=== PATIENT | male | born 1955 | race Two or more races ===

== ENCOUNTER 2024-05-19 20:52 | Inpatient (IN) | payer OTHER, SELFPAY ==
[2024-05-19 14:08] VITALS: BP 135/77
--- NOTE | 2024-05-19 14:19 | ED.GENMED ---
ED Provider Triage
<Jose Alberto Johnson PA-C - Last Filed: 05/19/24 20:57>
-
69 year old male with constant abdominal pain, vomiting and loose stools. Now with distention and ongoing pain in abdomen. He is distended and tedner on exam. Labs and CT ordered with IV/oral contrast. Sent to protocol for IV placement.
History of Present Illness
<Jose Alberto Johnson PA-C - Last Filed: 05/19/24 20:57>
General
Chief Complaint: Abdominal Symptoms
Time Seen by Provider: 05/19/24 16:25
<Tristen Pryor DO - Last Filed: 05/19/24 19:29>
General
Source: patient and family (daughter)
History of Present Illness
History of Present Illness:
69-year-old male brought to the emergency room for evaluation of abdominal pain, diarrhea. Patient began feeling unwell about 5 days ago. Started with more significant abdominal pain and also some nausea and vomiting. He has not vomited since the
first 24 hours but has had several episodes of watery stool. He denies any blood or mucus in the stool. He denies any recent travel. No else is ill. Close the patient did receive a COVID booster several days ago but denies any other change in
medications or events. No history of abdominal surgery.
Phy Exam
<Tristen Pryor DO - Last Filed: 05/19/24 19:29>
Physical Exam
Physical Exam:
General: Awake, Alert, Oriented X3. No acute distress.
Vitals: unremarkable
Head: Atraumatic
Eyes: Pupils equal, EOMI
Throat: Airway intact, no exudates, dry mucosa
Neck: Trachea midline
Lungs: Clear and equal b/l
Heart: Regular rate, no murmurs
Abd: Soft, diffusely tender, no rebound, No pulsatile mass
Neuro: Grossly nonfocal
Skin: Warm, dry, no rash
Extremities: pulses equal b/l, no edema
Course
<Jose Alberto Johnson PA-C - Last Filed: 05/19/24 20:57>
Orders/Labs/Results
Orders:
Orders
05/19/24 14:16
Iohexol [Omnipaque] See Protocol PO NOW STA
05/19/24 14:18
CT Abd/pel W Iv And Oral Contr Urgent
Comment:
Reason For Exam: abdominal pain, distention
05/19/24 14:27
Amylase Urgent
Comment: ADD ON
Complete Blood Count/With Diff Urgent
Comprehensive Metabolic Panel Urgent
Lipase Urgent
05/19/24 Dinner
Full Liquids
05/19/24 16:36
0.9% Sodium Chloride 1000 ml [Nss] 1,000 ml IV BOLUS
05/19/24 19:16
Add On- LAB Urgent
Tests Added?: amylase
05/19/24 19:56
COVID-19 Antigen Urgent
Source: Nasal Swab
05/19/24 20:09
Admit/Transfer Patient As Directed
Co-Sign Provider:
Level of Care: Inpatient admission
Assign to:: Medical/Surgical
Physician / Group: salomon mosquera
Diagnosis: abd pain diarrhea , acute pancreatitis
Reason for Hospitalization: abd pain diarrhea , acute pancreatitis
Expected length of stay greater than two midnights?: Yes
ELOS- Estimated Length of Stay in days: 3
I certify the patient meets the requirements for IP care: Yes
Code Status As Directed
Resuscitation Status: Full Code
05/19/24 20:12
PRN Pain Medication Management As Directed
May give lesser potent ordered pain med per pt: Yes
preference::
Protocol:: Medication orders for pain may be administered in a
manner that supports deferring to patient preference
when the pt is:
- Requesting an ordered lesser potent pain medication.
Least to most potent pain medications are defined
as: acetaminophen < NSAID < tramadol < opioids
(morphine, oxycodone, hydromorphone).
- Requesting a lesser dose of the same medication IF
ORDERED.
- Requesting a less intrusive route of administration
if both routes are prescribed by the provider (PO <
IV).
Abnormal Lab Results
05/19/24
14:27
WBC 14.1 H 10^3/uL
(4.8-10.8)
Hct 38.9 L %
(39.0-52.0)
MCV 70.3 L fL
(80.0-94.0)
MCH 23.5 L pg
(27.0-31.0)
Abs Immat Gran (auto) 0.1 H 10^3/uL
(0-0.05)
Absolute Neuts (auto) 10.6 H 10^3/uL
(1.4-6.5)
Absolute Monos (auto) 1.3 H 10^3/uL
(0.1-0.6)
Immature Gran % 1.0 H %
(0-0.5)
Lymphocytes % 12.7 L %
(20.5-51.1)
Monocytes % 9.4 H %
(1.7-9.3)
Sodium 132 L mmol/L
(135-145)
Glucose 167 H mg/dl
(70-99)
AST 94 H U/L
(17-59)
ALT 88 H U/L
(0-50)
Albumin 2.3 L g/dl
(3.5-5.0)
05/19/24 14:27
05/19/24 14:27
Vital Signs
Initial and Last Documented VS:
Initial Vital Signs
Temp Pulse Resp BP Pulse Ox
97.9 F 75 20 135/77 97
05/19/24 14:08 05/19/24 14:08 05/19/24 14:08 05/19/24 14:08 05/19/24 14:08
Last Documented Vital Signs
Temp Pulse Resp BP Pulse Ox
98.1 F 59 18 155/76 96
05/19/24 18:02 05/19/24 18:02 05/19/24 20:05 05/19/24 17:00 05/19/24 18:01
ly;Tristen Pryor, DO - Last Filed: 05/19/24 19:29>
Orders/Labs/Results
Orders:
Orders
05/19/24 14:16
Iohexol [Omnipaque] See Protocol PO NOW STA
05/19/24 14:18
CT Abd/pel W Iv And Oral Contr Urgent
Comment:
Reason For Exam: abdominal pain, distention
05/19/24 14:27
Amylase Urgent
Comment: ADD ON
Complete Blood Count/With Diff Urgent
Comprehensive Metabolic Panel Urgent
Lipase Urgent
05/19/24 Dinner
Full Liquids
05/19/24 16:36
0.9% Sodium Chloride 1000 ml [Nss] 1,000 ml IV BOLUS
05/19/24 19:16
Add On- LAB Urgent
Tests Added?: amylase
05/19/24 19:56
COVID-19 Antigen Urgent
Source: Nasal Swab
05/19/24 20:09
Admit/Transfer Patient As Directed
Co-Sign Provider:
Level of Care: Inpatient admission
Assign to:: Medical/Surgical
Physician / Group: salomon mosquera
Diagnosis: abd pain diarrhea , acute pancreatitis
Reason for Hospitalization: abd pain diarrhea , acute pancreatitis
Expected length of stay greater than two midnights?: Yes
ELOS- Estimated Length of Stay in days: 3
I certify the patient meets the requirements for IP care: Yes
Code Status As Directed
Resuscitation Status: Full Code
05/19/24 20:12
PRN Pain Medication Management As Directed
May give lesser potent ordered pain med per pt: Yes
preference::
Protocol:: Medication orders for pain may be administered in a
manner that supports deferring to patient preference
when the pt is:
- Requesting an ordered lesser potent pain medication.
Least to most potent pain medications are defined
as: acetaminophen < NSAID < tramadol < opioids
(morphine, oxycodone, hydromorphone).
- Requesting a lesser dose of the same medication IF
ORDERED.
- Requesting a less intrusive route of administration
if both routes are prescribed by the provider (PO <
IV).
Abnormal Lab Results
05/19/24
14:27
WBC 14.1 H 10^3/uL
(4.8-10.8)
Hct 38.9 L %
(39.0-52.0)
MCV 70.3 L fL
(80.0-94.0)
MCH 23.5 L pg
(27.0-31.0)
Abs Immat Gran (auto) 0.1 H 10^3/uL
(0-0.05)
Absolute Neuts (auto) 10.6 H 10^3/uL
(1.4-6.5)
Absolute Monos (auto) 1.3 H 10^3/uL
(0.1-0.6)
Immature Gran % 1.0 H %
(0-0.5)
Lymphocytes % 12.7 L %
(20.5-51.1)
Monocytes % 9.4 H %
(1.7-9.3)
Sodium 132 L mmol/L
(135-145)
Glucose 167 H mg/dl
(70-99)
AST 94 H U/L
(17-59)
ALT 88 H U/L
(0-50)
Albumin 2.3 L g/dl
(3.5-5.0)
05/19/24 14:27
05/19/24 14:27
Vital Signs
Initial and Last Documented VS:
Initial Vital Signs
Temp Pulse Resp BP Pulse Ox
97.9 F 75 20 135/77 97
05/19/24 14:08 05/19/24 14:08 05/19/24 14:08 05/19/24 14:08 05/19/24 14:08
Last Documented Vital Signs
Temp Pulse Resp BP Pulse Ox
98.1 F 59 18 155/76 96
05/19/24 18:02 05/19/24 18:02 05/19/24 20:05 05/19/24 17:00 05/19/24 18:01
<Jose Alberto Johnson PA-C - Last Filed: 05/19/24 20:57>
*Critical Care Note
Total Time (30-74mins, 75-104mins- exclusive of procedures): Not Applicable
ED Attending Note
<Jose Alberto Johnson PA-C - Last Filed: 05/19/24 20:57>
-
Portions of this chart may have been created with voice recognition software.� Occasional wrong word or��sound alike� substitutions may have occurred due to the inherent limitations of voice recognition software.
Discharge Plan
Departure
Patient Disposition: Admit
Date of Disposition: 05/19/24
Time of Disposition: 19:29
Presentation/result/management discussed w/ accepting MD/DO: Hospitalist
Condition: Fair
Discharge Problem:
Abdominal pain, acute, Acute pancreatitis
Interventions
Interventions:
*Risk Screen - Suicide Last Done: 05/19/24 14:08
*General Assessment Last Done: 05/19/24 14:08
*Neglect/Abuse Screening Last Done: 05/19/24 14:08
*ED COVID-19 Vaccine History Last Done: 05/19/24 16:32
AP-Gnxcuk-Kegnhljatc Assessment Last Done: 05/19/24 16:30
[2024-05-19] MEDS: OMNIPAQUE 50 ML PO (14:24)
[2024-05-19 14:55] LABS: % Basophils 0.4 % (0-2); % Eosinophils 1.4 % (0-6); % Lymphocytes 12.7 % (20.5-51.1); % Monocytes 9.4 % (1.7-9.3); % Neutrophils 75.1 % (42.2-75.2); Absolute Basophils 0.1 10^3/uL (0-0.2); Absolute Eosinophils 0.2 10^3/uL (0-0.7); Absolute Immature Granulocytes 0.1 10^3/uL (0-0.05); Absolute Lymphocytes 1.8 10^3/uL (1.2-3.4); Absolute Monocytes 1.3 10^3/uL (0.1-0.6); Absolute Neutrophils 10.6 10^3/uL (1.4-6.5); Hematocrit 38.9 % (39.0-52.0); Mean Corp Hgb Conc. 33.4 g/dL (33.0-37.0); Mean Corpuscular Hgb 23.5 pg (27.0-31.0); Mean Corpuscular Volume 70.3 fL (80.0-94.0); Nucleated Red Blood Cells % 0 % (-); Platelet Count 329 10^3/uL (130-400); Red Blood Cell Count 5.53 10^6/uL (4.70-6.10); Red Cell Dist. Width 13.9 % (11.5-14.5); White Blood Cell Count 14.1 10^3/uL (4.8-10.8)
[2024-05-19 15:09] LABS: ALT (SGPT) 88 U/L (0-50); AST (SGOT) 94 U/L (17-59); Albumin 2.3 g/dl (3.5-5.0); Alkaline Phosphatase 121 U/L (38-126); Blood Urea Nitrogen 11 mg/dl (9-20); Carbon Dioxide 25 mmol/L (22-30); Chloride 101 mmol/L (98-107); Glucose 167 mg/dl (70-99); Lipase 225 U/L (23-300); Sodium 132 mmol/L (135-145); Total Bilirubin 0.5 mg/dl (0.2-1.3); Total Protein 6.3 g/dl (6.3-8.2); eGFR > 60.00
[2024-05-19 16:29] VITALS: BMI 25.1
[2024-05-19 16:34] VITALS: BP 155/78
[2024-05-19] MEDS: NSS 1000 IV ×2 (16:37→21:39)
[2024-05-19 17:00] VITALS: BP 155/76
--- NOTE | 2024-05-19 19:42 | HPS.HSE ---
Addendum entered and electronically signed by Juan Daniel Knox DO 05/19/24 21:31:
Patient seen and examined independently. Agree with findings and plan as et forth by LOYD Em.
Patient is a 69y M with PMH significant for DM-II who presents to ED complaining of abdominal discomfort and loose, yellow stools. Patient notes that he received a COVID-19 booster on 05/10. His symptoms started 1-2 days thereafter. He denies
any known sick contacts. He traveled to the from [place] in March and has been well since arrival. Patient denies any fevers / chills. No N/V. No other current complaints / concerns.
Ass:
Loose Stools / Abdominal Discomfort
? Pancreatitis
DM-II
Benign Hypertension
Plan:
Admit for further evaluation and treatment.
Certainly not a classic clinical picture for pancreatitis. Normal lipase.
CT findings noted.
? viral GE. ? med effect / vaccine response.
IVFs overnight. Symptom control.
GI eval in the AM for additional recommendations.
Follow for clinical improvement.
Hold oral DM agents acutely.
Original Note:
Family Physician
-
Family Physician: * NONE
Chief Complaint
-
Nausea, vomiting, yellow stools
History of Present Illness
69-year-old male complaining of abdominal pain with vomiting and loose yellow stools. He reports feeling unwell approximately 5 days ago 5 days ago he vomited the first day then he has had 5 episodes of yellow watery stool that day since then he
has had daily 2 episodes of yellow watery stool. He does report getting a COVID booster on 05/10 due to an upcoming immigration appointment. He denies recent travel,no abx, sick contacts, raw foods, eating out, fever, chills, chest pain,
palpitations, shortness breath, cough, urinary symptoms. He has past medical history of hypertension, hyperlipidemia, DM 2. His daughter states he has been on Plavix 75 mg for 25 years but with no history of stroke or heart attack. He arrived
from [place] on March 14.
Medical History
Past Medical History
Past Medical History: Reports Other
Additional Past Medical History:
hypertension,
hyperlipidemia,
DM 2.
Past Surgical History: Reports None
Social History
Tobacco: Non-smoker
Alcohol: None
Drug: None
Personal:
Living: With Family
Employment: Retired
Family History
Family History: Other (Father history CVA)
Allergies / Home Medications
Allergies reflects when Allergies were last updated in [employer].
Home Medications with original date entered in [employer]
Allergy/Medication List:
Allergies
Allergy/AdvReac Type Severity Reaction Status Date / Time
zinc Allergy Unknown Verified 05/19/24 14:08
Home Medications
Cilnidipine 10 mg PO HS 05/19/24
Iwnuzuhhojrk-Iuocjsx-Mgbobgbvp 1 tab PO HS 05/19/24
Voglibose-Metformin 1 tab PO BID 05/19/24
ibuprofen-acetaminophen 1 tab PO BIDPRN PRN mild pain 05/19/24
meloxicam 7.5 mg tablet 7.5 mg PO DAILYPRN PRN mild pain 05/19/24
ondansetron 4 mg disintegrating tablet 4 mg PO Q8HPRN PRN nausea 05/19/24
psyllium husk 0.4 gram capsule (Metamucil) 0.4 g PO DAILY 05/19/24
simethicone 125 mg capsule (Gas-X Extra Strength) 250 mg PO BIDPRN PRN gas 05/19/24
Review of Systems
-
History Source: Patient and Family (Daughter at bedside)
Constitutional: Denies Fever, Fatigue or Chills
EENT: Denies Sore Throat or Runny Nose
Respiratory: Denies Cough or Trouble Breathing
Cardiac: Denies Chest Pain, Diaphoresis, Palpitations or Syncope
Abdomen/GI: Reports Nausea, Vomiting (X 1 5 days ago) and Diarrhea (Watery yellow); Denies Abdominal Pain
: Denies Dysuria, Frequency, Flank Pain, Incontinence, Difficulty Voiding or Urgency
Musculoskeletal: Denies Joint Pain or Edema
Skin: Denies Itching or Rash
Neurological: Denies Dizzy or Headache
Endocrine: Reports No Symptoms
Hematologic/Lymphatic: Reports No Symptoms
Psych: Reports Calm
Physical Exam
Vital Signs
Vital Signs
Temp Pulse Resp BP Pulse Ox
98.1 F 59 18 155/76 96
05/19/24 18:02 05/19/24 18:02 05/19/24 18:02 05/19/24 17:00 05/19/24 18:01
Physical Exam
General: Comfortable and Conversant; No Pain, Fever or Chills
HEENT: NormoCephalic, Anicteric, Moist mucous membranes, PERRLA, [place] Conjunctivae and No Ptosis
Respiratory: Clear; No Wheezes, Rales or Rhonchi
Cardiac: S1/S2 and Regular Rhythm; No Murmur, Rub, Gallop or Peripheral Edema
Breast: Deferred by me
GI: Soft, Non Tender, Non Distended, Normal Bowel Sounds and No Hepatosplenomegaly
Rectal: Deferred by Provider
Genito-urinary: Deferred by me
Musculoskeletal: No Clubbing, No Cyanosis and No Edema
Skin: Warm and Dry; No Rash
Neuro: AO x 3, No Motor Deficits, Nonfocal/grossly intact, Cranial Nerves Intact and No Sensory Deficits; No Slurred Speech, Facial Droop or Tremors
Psych: Calm
Laboratory Results
-
05/19/24 14:27
05/19/24 14:27
Laboratory Results
Total Bilirubin 0.5 mg/dl (0.2-1.3) 05/19/24 14:27
AST 94 U/L (17-59) H 05/19/24 14:27
ALT 88 U/L (0-50) H 05/19/24 14:27
Alkaline Phosphatase 121 U/L (38-126) 05/19/24 14:27
Lipase 225 U/L (23-300) 05/19/24 14:27
Data Reviewed
-
CT Scan: Report Reviewed by me
Lab Data: Labs Reviewed by me
Impression/Plan
-
Impression/plan:
Admit to MedSurg
#Abdominal pain 2/[address] vs viral gastroenteritis
WBC 14 no left shift, afebrile
-IV NSS
-IV Zofran as needed
-Clears
- check covid
- check lipid profile
-Follow CMP/CBC
CT abdomen pelvis with IV and oral contrast:
Moderate amount of edema surrounding the pancreas slightly greater adjacent to the pancreatic tail suggestive of pancreatitis despite elevated lipase no pancreatic necrosis
#DM 2
-Accu-Cheks with SSI low, check HgbA1c
-Hold metformin 500 mg twice daily
#HTN�benign
BP 155/76
-Patient on calcium channel tyrel from [place] cilnidipine
Hold asa/plavix/cresstor pill from [place]
#HLd
- check lipid profile
cont crestor 10 mg hs
DVT prophylaxis
Subcu Lovenox
Full code
[2024-05-19 19:55] LABS: Amylase 72 U/L (30-110)
[2024-05-19 20:15] LABS: COVID-19 Antigen Negative (Negative)
--- NOTE | 2024-05-19 21:30 | PTCARENOTE ---
no delay received. aajose. araceli @ [facility]/hr. pt updated on plan of care. daughter at bedside. call archuleta in reach. will monitor.
[2024-05-19 21:37] LABS: Glucose - Point of Care 113 mg/dl (70-99)
[2024-05-19 21:47] VITALS: BP 144/77; BMI 24.0
[2024-05-19] MEDS: NON-FORMULARY ITEM 10 MG PO (22:11)
[2024-05-19] MEDS: TORADOL 10 MG IV (22:12)
[2024-05-19 23:12] VITALS: BP 134/71
[2024-05-20 06:44] LABS: % Basophils 0.2 % (0-2); % Eosinophils 1.2 % (0-6); % Immature Granulocytes 1.5 % (0-0.5); % Lymphocytes 13.2 % (20.5-51.1); % Monocytes 9.2 % (1.7-9.3); % Neutrophils 74.7 % (42.2-75.2); Absolute Eosinophils 0.2 10^3/uL (0-0.7); Absolute Immature Granulocytes 0.2 10^3/uL (0-0.05); Absolute Lymphocytes 1.6 10^3/uL (1.2-3.4); Absolute Monocytes 1.1 10^3/uL (0.1-0.6); Absolute Neutrophils 9.1 10^3/uL (1.4-6.5); Hemoglobin 12.4 g/dL (13.0-18.0); Mean Corp Hgb Conc. 33.5 g/dL (33.0-37.0); Mean Corpuscular Volume 71.7 fL (80.0-94.0); Mean Platelet Volume 8.7 fL (7.4-10.4); Nucleated Red Blood Cells % 0 % (-); Platelet Count 278 10^3/uL (130-400); Red Blood Cell Count 5.16 10^6/uL (4.70-6.10); Red Cell Dist. Width 13.8 % (11.5-14.5); White Blood Cell Count 12.1 10^3/uL (4.8-10.8)
[2024-05-20 07:16] LABS: ALT (SGPT) 89 U/L (0-50); AST (SGOT) 58 U/L (17-59); Alkaline Phosphatase 106 U/L (38-126); Blood Urea Nitrogen 8 mg/dl (9-20); Calcium 8.6 mg/dl (8.4-10.2); Carbon Dioxide 27 mmol/L (22-30); Chloride 102 mmol/L (98-107); Estimated Creatinine Clearance 78 ml/min; Glucose 121 mg/dl (70-99); HDL Cholesterol 20 mg/dl; LDL Cholesterol, Calculated 47 mg/dl; Lipase 158 U/L (23-300); Sodium 133 mmol/L (135-145); Total Bilirubin 0.6 mg/dl (0.2-1.3); Total Cholesterol 86 mg/dl (50-199); Total Protein 5.6 g/dl (6.3-8.2); Triglyceride 95 mg/dl (10-149); Very Low Density Lipoprotein 19 mg/dl (0-30); eGFR > 60.00
[2024-05-20 07:54] LABS: Glucose - Point of Care 132 mg/dl (70-99)
[2024-05-20 07:57] VITALS: BP 140/79
[2024-05-20] MEDS: NSS 1000 IV ×2 (08:05→18:18)
[2024-05-20] MEDS: NSS (PRESERVATIVE FREE) 10 ML IV (08:06)
[2024-05-20] MEDS: PROTONIX IV 40 MG IV (08:06)
--- NOTE | 2024-05-20 09:18 | CON.GI ---
Addendum entered and electronically signed by Isabelle Sargent MD 05/20/24 17:29:
I saw and examined the patient.
The PHOTOGRAPHER PORTRAIT's note was reviewed and I agree with the note.
Comment: 69-year-old male who presented with symptoms of epigastric pain with symptoms of nausea vomiting which initially started about 2 days after he received a COVID booster shot on 05/10/2024. He says he had 3 bowel movements with the vomiting.
His vomiting resolved and the pain persisted which prompted him to come into the ER and on imaging he was found to have acute pancreatitis although his lipase level was normal. He denies any recent change in medications he is visiting his daughter
and came from [place] in March. No prior history of pancreatitis and denies alcohol use.
Assessment and plan 1. Acute pancreatitis unclear if it is related to the recent COVID booster he received no other recent change in medications he was taking ibuprofen for a few days prior to admission for the pain his LFTs were mildly elevated
with transaminitis they have been trending down, calcium is normal at 8.6, triglycerides are normal at 95 and lipase is also normal although the CT showed pancreatitis, no ductal dilatation or gallstones seen on the CT. his symptoms have markedly
improved and he has not had any further episodes of the pain. Will advance to low-fat diet for breakfast. Will get an MRI with MRCP to rule out possible sludge or stones in the bile duct.
2. Also has mild microcytic anemia his ferritin level is normal at 136 with a low iron level. Likely mixed iron deficiency and anemia of chronic disease. Microcytic anemia most likely from vegetarian diet. I discussed with his daughter over the
telephone and recommended an endoscopy and a colonoscopy since he is on a visitor visa he is going to try to get these test when he goes back to [place]. no over bleeding currently.
Original Note:
Consultation
-
Date/Time Consultation Requested: 05/19/242208
Date/Time Consultation Performed: 05/20/24 0900
Requesting Provider: LOYD Em
Performing Provider: Dr. Sargent/LOYD Davis
Reason for Consultation: pancreatitis
Medical History
Chief Complaint / HPI
Chief Complaint: abd pain
History of Present Illness:
69-year-old male with past medical history of diabetes and hypertension who recently had a COVID booster on 05/10/2024 presents to the emergency room last evening after having 8-day history of initially nausea and vomiting of bilious yellow fluid
followed by abdominal pain surrounding his navel, low back pain and loose stools. We are asked to evaluate for the same. The patient states that last Sunday he had acute onset of nausea and vomiting. He states that this was yellow in nature
and he had approximately 8 episodes of this. He states that he also had significant amount of burping and belching. He tried taking simethicone without any relief. He then started having abdominal pain surrounding his navel. He states that this
is always present with periods of increasing intensity. He states that this was sharp and dull. He states that when he would have an episode of burping the pain would increase. He also had low back pain. He would try taking ibuprofen 1 tablet
twice a day for approximately 4 days without any relief. He started also having loose stools that were brown in color. He denies any fevers, chills, melena, hematochezia, dysphagia or odynophagia. No sick contacts. His last travel was in [place]
in early March. The patient states his medications that are prescription he receives from [place]. He did have a recent refill of these. He takes clinidine for blood pressure, metformin, and a combination medication that he states was prescribed to
him for 'preventative reasons'. This is a combination of aspirin, clopidogrel and rosuvastatin. The patient denies any past cardiac history, no previous strokes or stenting. The patient is never had episodes like this in the past. He has had no
prior history of pancreatitis. He has had no changes in his medications or dosages of late. The patient does not smoke. He does not drink any alcohol. The patient is a vegetarian.
Past Medical History
Past Medical History: HTN and NIDDM
Past Surgical History: None
Social History
Tobacco: Non-Smoker
Alcohol: None
Drug: None
Employment: Retired
Family History
Family History: Other (No family history gastrointestinal malignancies or IBD. No family history of pancreatitis or pancreatic malignancy.)
Allergies / Home Medications
Allergy/AdvReac Type Severity Reaction Status Date / Time
zinc Allergy Unknown Verified 05/19/24 14:08
�Medication �Instructions �Recorded
Cilnidipine 10 mg PO HS 05/19/24
Dosgzotckfgk-Ihuexmw-Jvrkpcppy 1 tab PO HS 05/19/24
Voglibose-Metformin 1 tab PO BID 05/19/24
ibuprofen-acetaminophen 1 tab PO BIDPRN PRN mild pain 05/19/24
meloxicam 7.5 mg tablet 7.5 mg PO DAILYPRN PRN mild pain 05/19/24
ondansetron 4 mg disintegrating 4 mg PO Q8HPRN PRN nausea 05/19/24
tablet
psyllium husk 0.4 gram capsule 0.4 g PO DAILY 05/19/24
(Metamucil)
simethicone 125 mg capsule (Gas-X 250 mg PO BIDPRN PRN gas 05/19/24
Extra Strength)
Review of Systems
-
All other systems: A 12 pt ROS was Negative except as stated above in HPI
Vital Signs
Temp Pulse Resp BP Pulse Ox
98.2 F 85 17 140/79 97
05/20/24 07:57 05/20/24 07:57 05/20/24 07:57 05/20/24 07:57 05/20/24 07:57
Physical Exam
Exam
General: No Apparent Distress
HEENT: Anicteric
Respiratory: Clear
Cardiac: Regular Rhythm
GI: Soft, Normal Bowel Sounds, Tender (Periumbilical) and Distended
Musculoskeletal: No Edema
Skin: Warm and Dry
Neuro: AO x 3
Psych: Calm
Results
WBC 12.1 10^3/uL (4.8-10.8) H 05/20/24 06:16
Hgb 12.4 g/dL (13.0-18.0) L 05/20/24 06:16
Hct 37.0 % (39.0-52.0) L 05/20/24 06:16
MCV 71.7 fL (80.0-94.0) L 05/20/24 06:16
Plt Count 278 10^3/uL (130-400) 05/20/24 06:16
Absolute Neuts (auto) 9.1 10^3/uL (1.4-6.5) H 05/20/24 06:16
Sodium 133 mmol/L (135-145) L 05/20/24 06:16
Potassium 4.0 mmol/L (3.5-5.1) 05/20/24 06:16
Chloride 102 mmol/L (98-107) 05/20/24 06:16
Carbon Dioxide 27 mmol/L (22-30) 05/20/24 06:16
BUN 8 mg/dl (9-20) L 05/20/24 06:16
Creatinine 0.8 mg/dL (0.7-1.3) 05/20/24 06:16
Calcium 8.6 mg/dl (8.4-10.2) 05/20/24 06:16
Total Bilirubin 0.6 mg/dl (0.2-1.3) 05/20/24 06:16
AST 58 U/L (17-59) 05/20/24 06:16
ALT 89 U/L (0-50) H 05/20/24 06:16
Alkaline Phosphatase 106 U/L (38-126) 05/20/24 06:16
Amylase 72 U/L (30-110) 05/19/24 14:27
Lipase 158 U/L (23-300) 05/20/24 06:16
Diagnostic Image Results:
CT abdomen pelvis with IV and oral contrast 05/19/2024:
IMPRESSION: As described, CT findings which almost certainly represent pancreatitis, despite the normal lipase value. No gross evidence for pancreatic necrosis. No evidence of collection to suggest abscess or developing pseudocyst at this time.
Atelectasis within the visualized lower lungs.
Coronary artery calcifications are noted. Please correlate with symptoms of and risk factors for coronary artery disease, with further workup as clinically appropriate.
Bony degenerative changes as described.
Prior GI Procedures:
EGD: Never had EGD
Colonoscopy: Never had colonoscopy
Assessment / Plan
-
69-year-old male with past medical history of diabetes and hypertension who recently had a COVID booster on 05/10/2024 presents to the emergency room last evening after having 8-day history of initially nausea and vomiting of bilious yellow fluid
followed by abdominal pain surrounding his navel, low back pain and loose stools. We are asked to evaluate for the same. CT of the abdomen pelvis with oral and IV contrast show a moderate amount of edema surrounding the pancreas, slightly greater
adjacent the pancreatic tail. This edema extends inferiorly within the anterior pararenal space. These findings are highly suggestive of pancreatitis, despite the lack of an elevated lipase value. Of note, there is no focal area of macroscopic
pancreatic necrosis. There is no evidence of a collection to suggest abscess or developing pseudocyst at this time. There is no evidence for calcified gallstones. No evidence for biliary ductal dilatation. WBC 12.1, hemoglobin 12.4, hematocrit
37.0, platelets 278, MCV 71.7, MCH 24.0, sodium 133, potassium 4.0, chloride 102, CO2 27, BUN 8, creatinine 0.8, glucose 121, calcium 8.6, total bilirubin 0.6, AST 58 down from 94, ALT 89 (88), alk phos 106 down from 121, albumin 3.0, amylase 72,
lipase 158 down from 225. COVID-negative.
Impression:
Pancreatitis-> first known episode, to consider passed gallstone, autoimmune or medication induced.
Microcytic anemia
Diabetes
Hypertension
Plan:
-Continue IV fluids
-Check iron studies, B12 and folate
-Continue pantoprazole
-Check IgG4 subclasses
-Incentive spirometer
-Analgesia
-If with worsening pain would repeat imaging, MRI/MRCP.
-Patient needs outpatient screening colonoscopy, to consider EGD as well.
-Further recommendations to be forthcoming.
Data Reviewed
-
CT Scan: Report Reviewed by me
-
-
Thank you for consultation and allowing me to participate in the patient's care. Please call the push connector assembler GI physician during the after hours with any questions or concerns.
[2024-05-20 10:20] LABS: Glycohemoglobin (HgbA1c) 6.6 % (4.0-5.6)
[2024-05-20 10:25] VITALS: BP 141/77; PULSE 70; O2SAT 96
[2024-05-20 10:29] VITALS: BP 141/77; PULSE 70; O2SAT 96
[2024-05-20] MEDS: TORADOL 10 MG IV (10:38)
--- NOTE | 2024-05-20 10:41 | PTOTSP ---
Pt presents to OT with grossly intact cognition and vision, and good UB AROM and strength. Currently at mod I level with basic self care, transfers and functional mobility in room without AD. No further skilled OT indicated at this time. Anticipate
safe discharge home with support of family as needed.
[2024-05-20 10:42] LABS: Total Iron Binding Capacity 265 ug/dl (261-462)
[2024-05-20 10:43] LABS: Iron < 20 ug/dl (49-181)
[2024-05-20 11:38] LABS: Glucose - Point of Care 178 mg/dl (70-99)
[2024-05-20 14:03] LABS: Folate 5.6 ng/ml (2.76-20)
--- NOTE | 2024-05-20 15:53 | W.PN.HOSP.TC ---
Today's Communication/Plan
-
await GI input
NPO/IVF
Assessment / Plan
Assessment / Plan
pt is a 69 year old male
Abdominal pain due to acute pancreatitis per CT--despite essentially normal lipase--? passed stone, meds, autoimmune, other, etc?--await GI--cont pain control--NPO/IVF-- lipids OK
type 2 DM--Accu-Cheks with SSI low, check [id number]--Etuo metformin 500 mg twice daily until taking food
Essential HTN�-Patient on calcium channel tyrel from [place] cilnidipine--Hold asa/plavix/crestor (pills from [place])
HLD- lipid profile--cont crestor 10 mg hs
DVT prophylaxis
Subcu Lovenox
Full code
Anticipated Discharge: 24 - 48 hours
Subjective/Interval History
-
Date of Service: May 20, 2024
pt accompanied by family with a myriad of questions
Objective Data
-
Labs:
Laboratory Results
05/20/24
06:16
WBC 12.1 H
Hgb 12.4 L
Hct 37.0 L
Plt Count 278
Sodium 133 L
Potassium 4.0
Chloride 102
Carbon Dioxide 27
BUN 8 L
Creatinine 0.8
Glucose 121 H
Calcium 8.6
Total Bilirubin 0.6
AST 58
ALT 89 H
Alkaline Phosphatase 106
Vital Signs:
max temp for 24 hours
05/19/24
23:12
Temp 98.7 F
Vital Signs
Temp Pulse Resp BP Pulse Ox
98.2 F 85 17 140/79 97
05/20/24 07:57 05/20/24 07:57 05/20/24 07:57 05/20/24 07:57 05/20/24 07:57
I&O
05/19/24 05/20/24 05/21/24
06:59 06:59 06:59
Intake Total 1640 / 1640
Balance 1640 / 1640
Review of Systems
-
All other systems: Reviewed and negative
Physical Exam
-
General: Well Developed, Well Nourished and No Apparent Distress
HEENT: Normocephalic and Atraumatic; Negative Oxygen
Respiratory: Clear to Auscultation; Negative Wheezes or Rhonchi
Cardiac: Regular Rhythm, S1/S2 and Murmur
GI: Soft, Nontender, Nondistended and Normal Bowel Sounds
Musculoskeletal: No Clubbing, No Cyanosis and No Edema
Neuro: Awake and Alert
--- NOTE | 2024-05-20 16:04 | CM ---
Patient seen at bedside with physician. Patient 2 daughters present. Patient daughter stated that patient is from [place] and traveling here in the states with daughter. Patient has commercial travelers insurance. Patient has no PCP here and uses the
[facility] [address] in [place]. Patient has no other DME or past VN supports. Patient plan is to go home with family and continue traveling. CM will continue to follow for discharge planning needs.
Plan; home with no needs vs home with VN
[2024-05-20 16:37] LABS: Glucose - Point of Care 147 mg/dl (70-99)
[2024-05-20 16:39] VITALS: BP 145/72
[2024-05-20] MEDS: LOVENOX 40 MG SC (18:23)
--- NOTE | 2024-05-20 19:30 | PTCARENOTE ---
Patient updated on plan of care for tomorrow morning- he will be getting MRCP.
[2024-05-20] MEDS: NON-FORMULARY ITEM 10 MG PO (21:14)
[2024-05-20 21:28] LABS: Glucose - Point of Care 250 mg/dl (70-99)
[2024-05-20 23:53] VITALS: BP 124/67
[2024-05-21] MEDS: NSS 1000 IV ×2 (03:21→14:33)
[2024-05-21 06:29] LABS: Hematocrit 35.2 % (39.0-52.0); Hemoglobin 11.8 g/dL (13.0-18.0); Mean Corp Hgb Conc. 33.5 g/dL (33.0-37.0); Mean Corpuscular Hgb 23.6 pg (27.0-31.0); Mean Corpuscular Volume 70.4 fL (80.0-94.0); Mean Platelet Volume 8.5 fL (7.4-10.4); Platelet Count 302 10^3/uL (130-400); Red Cell Dist. Width 13.8 % (11.5-14.5); White Blood Cell Count 12.1 10^3/uL (4.8-10.8)
[2024-05-21 07:20] LABS: ALT (SGPT) 94 U/L (0-50); AST (SGOT) 57 U/L (17-59); Alkaline Phosphatase 110 U/L (38-126); Blood Urea Nitrogen 8 mg/dl (9-20); Calcium 8.6 mg/dl (8.4-10.2); Carbon Dioxide 27 mmol/L (22-30); Chloride 105 mmol/L (98-107); Estimated Creatinine Clearance 78 ml/min; Glucose 136 mg/dl (70-99); Lipase 217 U/L (23-300); Potassium 4.2 mmol/L (3.5-5.1); Sodium 137 mmol/L (135-145); Total Bilirubin 0.5 mg/dl (0.2-1.3); Total Protein 5.8 g/dl (6.3-8.2); eGFR > 60.00
[2024-05-21 07:30] VITALS: BP 137/76
[2024-05-21 08:07] LABS: Glucose - Point of Care 127 mg/dl (70-99)
[2024-05-21] MEDS: PROTONIX IV 40 MG IV (08:12)
[2024-05-21] MEDS: NSS (PRESERVATIVE FREE) 10 ML IV (08:12)
--- NOTE | 2024-05-21 10:07 | W.PN.GI.CBS2 ---
Today's Communication / Plan
-
adv to low fat diet
MRI today
possible DC today if tolerates diet
Assessment / Plan
-
69-year-old male with past medical history of diabetes and hypertension who recently had a COVID booster on 05/10/2024 presents to the emergency room last evening after having 8-day history of initially nausea and vomiting of bilious yellow fluid
followed by abdominal pain surrounding his navel, low back pain and loose stools. We are asked to evaluate for the same. CT of the abdomen pelvis with oral and IV contrast show a moderate amount of edema surrounding the pancreas, slightly greater
adjacent the pancreatic tail. This edema extends inferiorly within the anterior pararenal space. These findings are highly suggestive of pancreatitis, despite the lack of an elevated lipase value. Of note, there is no focal area of macroscopic
pancreatic necrosis. There is no evidence of a collection to suggest abscess or developing pseudocyst at this time. There is no evidence for calcified gallstones. No evidence for biliary ductal dilatation. WBC 12.1, hemoglobin 12.4, hematocrit
37.0, platelets 278, MCV 71.7, MCH 24.0, sodium 133, potassium 4.0, chloride 102, CO2 27, BUN 8, creatinine 0.8, glucose 121, calcium 8.6, total bilirubin 0.6, AST 58 down from 94, ALT 89 (88), alk phos 106 down from 121, albumin 3.0, amylase 72,
lipase 158 down from 225. COVID-negative.
Impression:
Pancreatitis-> first known episode, to consider passed gallstone, autoimmune or medication induced.
Microcytic anemia
Diabetes
Hypertension
A/Plan:
Acute pancreatitis unclear if it is related to the recent COVID booster he received no other recent change in medications he was taking ibuprofen for a few days prior to admission for the pain his LFTs were mildly elevated with transaminitis they
have been trending down, ? from fatty liver calcium is normal at 8.6, triglycerides are normal at 95 and lipase is also normal although the CT showed pancreatitis, no ductal dilatation or gallstones seen on the CT.
symptoms have markedly improved and he has not had any further episodes of the pain. Will advance to low-fat diet for breakfast
Will get an MRI with MRCP to rule out possible sludge or stones in the bile duct.
mild microcytic anemia his ferritin level is normal at 136 with a low iron level. Likely mixed iron deficiency and anemia of chronic disease most likely from vegetarian diet. I discussed with his daughter over the telephone 05/20 and recommended an
endoscopy and a colonoscopy since he is on a visitor visa he is going to try to get these test when he goes back to [facility]. no over bleeding currently.
DC IVF
Continue pantoprazole
Check IgG4 subclasses
Incentive spirometer
Subjective
Subjective
Date of Service: May 21, 2024
pain is completely resolved, no further nausea or vomiting, he is hungry and wants to eat, awaiting MRI today
Objective
Data Reviewed
Laboratory Data:
Laboratory Results
05/21/24 06:07
05/21/24 06:07
Laboratory Results
Total Bilirubin 0.5 mg/dl (0.2-1.3) 05/21/24 06:07
AST 57 U/L (17-59) 05/21/24 06:07
ALT 94 U/L (0-50) H 05/21/24 06:07
Alkaline Phosphatase 110 U/L (38-126) 05/21/24 06:07
Amylase 72 U/L (30-110) 05/19/24 14:27
Lipase 217 U/L (23-300) 05/21/24 06:07
Vital Signs and I&O:
Vital Signs
Temp Pulse Resp BP Pulse Ox
97.9 F 70 18 137/76 98
05/21/24 07:30 05/21/24 07:30 05/21/24 07:30 05/21/24 07:30 05/21/24 07:30
I&O
05/20/24 05/21/24 05/22/24
06:59 06:59 06:59
Intake Total 3200 / 3200
Balance 3200 / 3200
Physical Exam
Physical Exam
Cardiology: Normal Sinus Rhythm
Pulmonary: Clear
GI: Soft, Non Distended, Non Tender and Normal Bowel Sounds
[2024-05-21 12:07] LABS: Glucose - Point of Care 111 mg/dl (70-99)
--- NOTE | 2024-05-21 13:02 | W.PN.HOSP.TC ---
Today's Communication/Plan
-
await GI
Assessment / Plan
Assessment / Plan
pt is a 69 year old male
Abdominal pain due to acute pancreatitis per CT--despite essentially normal lipase--? passed stone, meds, autoimmune, other, etc?--apprec GI, MRI shows pancreatitis without evidence of gallstones--cont pain control-- lipids OK--diet advancing
type 2 DM--Accu-Cheks with SSI low, check [id number]--[id number] metformin 500 mg twice daily
Essential HTN�-Patient on calcium channel tyrel from [facility] cilnidipine--restart asa/plavix/crestor (pills from [facility])
HLD- lipid profile--cont crestor 10 mg hs
DVT prophylaxis
Subcu Lovenox
Full code
Anticipated Discharge: Within 24 hours
Subjective/Interval History
-
Date of Service: May 21, 2024
pt sitting up eating
Objective Data
-
Labs:
Laboratory Results
05/21/24
06:07
WBC 12.1 H
Hgb 11.8 L
Hct 35.2 L
Plt Count 302
Sodium 137
Potassium 4.2
Chloride 105
Carbon Dioxide 27
BUN 8 L
Creatinine 0.8
Glucose 136 H
Calcium 8.6
Total Bilirubin 0.5
AST 57
ALT 94 H
Alkaline Phosphatase 110
Vital Signs:
max temp for 24 hours
05/20/24
23:53
Temp 98.9 F
Vital Signs
Temp Pulse Resp BP Pulse Ox
97.9 F 70 18 137/76 98
05/21/24 07:30 05/21/24 07:30 05/21/24 07:30 05/21/24 07:30 05/21/24 07:30
I&O
05/20/24 05/21/24 05/22/24
06:59 06:59 06:59
Intake Total 3200 / 3200
Balance 3200 / 3200
Review of Systems
-
All other systems: Reviewed and negative
Physical Exam
-
General: Well Developed, Well Nourished and No Apparent Distress
HEENT: Normocephalic and Atraumatic
Respiratory: Clear to Auscultation; Negative Wheezes or Rhonchi
Cardiac: Regular Rhythm and S1/S2; Negative Murmur
GI: Soft, Nontender, Nondistended and Normal Bowel Sounds
Musculoskeletal: No Clubbing, No Cyanosis and No Edema
Neuro: Awake and Alert
--- NOTE | 2024-05-21 13:17 | CM ---
Patient stated that he was feeling much better and sitting out of bed eating with daughter when seen at bedside with physician. Patient daughter indicated that they were starting the application for the traveler's insurance and indicated that they
do not yet have any follow up documents. CM will continue to follow for discharge home with no needs.
Plan; home with family no needs anticipated;
[2024-05-21] MEDS: NORVASC 10 MG PO (14:58)
[2024-05-21 15:05] VITALS: BP 120/64
--- NOTE | 2024-05-21 16:16 | W.PN.UPDATE ---
Update Note
Progress Note Update
Reviewed MRI results with patient's daughter. Patient tolerating low-fat diet no further pain. Okay to DC home. I told the daughter to make sure he follows up with a security orderly when he gets back to [facility] in August for outpatient
endoscopy, colonoscopy given microcytic anemia although most likely related to his vegetarian diet and also consider EUS since no obvious cause was found for the pancreatitis ? passed stone. Also for the fatty liver needs to follow-up LFTs as
outpatient and recommended weight loss with exercise and Mediterranean diet avoid NSAIDs
05/21/24 MRI WITH MRCP
IMPRESSION:
No evidence of choledocholithiasis or cholelithiasis.
There is extensive peripancreatic edema/inflammation without discrete collection. Findings are consistent with known pancreatitis. No evidence of pancreatic necrosis.
Hepatic steatosis.
Trace bilateral pleural effusions with adjacent atelectasis.
--- NOTE | 2024-05-21 16:50 | W.DCSUMMARY ---
Discharge Summary
Discharge Data
Date of Admission: 05/19/24
Date of Discharge: 05/21/24
-
Pending Results: No
Hospital Course
Primary care physician : in [place]
Principal Discharge diagnosis : Acute pancreatitis
Chronic Discharge diagnosis : Type 2 diabetes mellitus, essential hypertension, hyperlipidemia
Hospital Course : Patient was 69-year-old male who was complaining of abdominal pain with vomiting and loose yellow stools. He felt unwell approximately 5 days prior to admission and vomited for the first time at that time then had 5 episodes of
yellow watery stool. He reported getting a COVID booster on May 10 for an upcoming immigration appointment. He is traveling with his family. Patient was found to have pancreatitis and was admitted.
Problem #1: Acute pancreatitis. This was found by CAT scan despite having normal lipase levels. He was made n.p.o. with IV fluids. GI was consulted. He underwent MRI. Patient denied any alcohol intake. MRI showed no evidence of
choledocholithiasis or cholelithiasis. There was extensive peripancreatic inflammation consistent with pancreatitis. Etiology is unknown. Perhaps related to his COVID-vaccine or other viral illness. Perhaps related to the medications that he was
taking from [place]. Nevertheless, with bowel rest he improved. He tolerated his diet without any abdominal pain. He is stable for discharge.
Problem #2: All other medical issues. These include Type 2 diabetes mellitus, essential hypertension, hyperlipidemia. These medical issues were stable during his hospitalization. Once he was able to eat medications were restarted.
Patient is stable for discharge home with his family at this time. If there are any questions regarding this dictation or his hospital stay, please not hesitate to call. Our office number is [phone].
Important imaging findings :
CT SCAN ABDOMEN/PELVIS IMPRESSION: As described, CT findings which almost certainly represent pancreatitis, despite the normal lipase value. No gross evidence for pancreatic necrosis. No evidence of collection to suggest abscess or developing
pseudocyst at this time.
Atelectasis within the visualized lower lungs.
Coronary artery calcifications are noted. Please correlate with symptoms of and risk factors for coronary artery disease, with further workup as clinically appropriate.
Bony degenerative changes as described.
MRCP IMPRESSION:
No evidence of choledocholithiasis or cholelithiasis.
There is extensive peripancreatic edema/inflammation without discrete collection. Findings are consistent with known pancreatitis. No evidence of pancreatic necrosis.
Hepatic steatosis.
Trace bilateral pleural effusions with adjacent atelectasis.
Discharge Plan
-
Patient Disposition: Home (Routine Discharge)
Discharge Diagnosis/Procedures: Acute pancreatitis, type 2 diabetes mellitus, essential hypertension, hyperlipidemia
Condition: Good
Diet: Diabetic, Carb Controlled and Other diet
Additional Diets: Vegan diet
Activity: As tolerated
Driving Restrictions: As prior to admission
Bathing Restrictions: None
Activity Restrictions/Additional Instructions:
will need EGD, colonoscopy, and EUS in [place]
Referrals:
NONE,* [Family Provider] - in less than 1 week (Patient should follow-up with his physician in [place] once he returns from traveling.)
Prescriptions:
Continued
simethicone [Gas-X Extra Strength] 125 mg Capsule
250 mg PO BIDPRN PRN (Reason: gas)
meloxicam 7.5 mg Tablet
7.5 mg PO DAILYPRN PRN (Reason: mild pain)
ondansetron 4 mg Tablet,Disintegrating
4 mg PO Q8HPRN PRN (Reason: nausea)
psyllium husk [Metamucil] 0.4 gram Capsule
0.4 g PO DAILY
Cilnidipine 10 mg tablet
10 mg PO HS
Kfjuirawavdv-Ezytzun-Ykxubktlh tablet
1 tab PO HS
Patient Comments:
05/19/24: Strength: [id number]
Voglibose-Metformin 0.5 mg/500 mg tablet
1 tab PO BID
ibuprofen-acetaminophen 400 mg/325 mg tablet
1 tab PO BIDPRN PRN (Reason: mild pain)
Discharge Orders:
Discharge Patient (As Directed); Ordered 05/21/24
Ordered By: Shea Lizama
Discharge Date and Time
Print Language: YORUBA
[2024-05-21 17:15] LABS: Glucose - Point of Care 147 mg/dl (70-99)
[2024-05-21] MEDS: LOVENOX 40 MG SC (17:33)
[2024-05-23 04:04] LABS: IgG Subclass 4 36 mg/dL (1-123)
== END 2024-05-21 18:11 | disposition home or self-care (01) | DRG 440 ==
LOC: 3 WEST ACU 20:52
PROVIDERS: Clinical Nurse Specialist Family Health; Nurse Practitioner; Physician Assistant; ADMITTING PHYSICIAN Hospitalist; ATTENDING PHYSICIAN Internal Medicine; CONSULT PHYSICIAN Internal Medicine Gastroenterology; EMERGENCY PHYSICIAN Emergency Medicine
DX: K85.90 Acute pancreatitis without necrosis or infection, unspecified (principal); D63.8 Anemia in other chronic diseases classified elsewhere; K76.0 Fatty (change of) liver, not elsewhere classified; E11.9 Type 2 diabetes mellitus without complications; I10 Essential (primary) hypertension; D50.9 Iron deficiency anemia, unspecified; A08.4 Viral intestinal infection, unspecified; I25.10 Atherosclerotic heart disease of native coronary artery without angina pectoris; E78.5 Hyperlipidemia, unspecified; M54.50 Low back pain, unspecified; Z79.84 Long term (current) use of oral hypoglycemic drugs; Z79.899 Other long term (current) drug therapy
CPT/HCPCS: 74177; 74183; 80053; 80061; 82150; 82728; 82746; 82787; 82962; 83036; 83540; 83550; 83690; 85025; 85027; 87045; 87046; 87324; 87427; 87449; 87811; 89055; 96360; 97161; 97165; 99285; A9575; Q9967

== ENCOUNTER → 2024-06-17 18:11 | Outpatient (REF) | payer SELFPAY | LOC: RAD 18:11 | PROVIDERS: ATTENDING PHYSICIAN Physician Assistant | DX: R76.12 Nonspecific reaction to cell mediated immunity measurement of gamma interferon antigen response without active tuberculosis (principal) | CPT/HCPCS: 71046 ==

== ENCOUNTER 2025-04-30 06:10 | Day surgery (SDC) | payer OTHER, SELFPAY ==
[2025-04-30 10:42] LABS: Glucose - Point of Care 95 mg/dl (70-99)
[2025-04-30 10:51] VITALS: BMI 24.1
[2025-04-30 10:52] VITALS: BMI 24.1
[2025-04-30 10:53] VITALS: BP 138/70
[2025-04-30 12:49] VITALS: BP 116/73
[2025-04-30 13:00] VITALS: BP 125/77
== END 2025-04-30 13:40 | disposition home or self-care (01) ==
LOC: SDS 06:10
PROVIDERS: ATTENDING PHYSICIAN Internal Medicine Gastroenterology
DX: K86.9 Disease of pancreas, unspecified (principal); K31.89 Other diseases of stomach and duodenum; R93.5 Abnormal findings on diagnostic imaging of other abdominal regions, including retroperitoneum; R93.3 Abnormal findings on diagnostic imaging of other parts of digestive tract
CPT/HCPCS: 43237; 43239; 82962; 88305; 88342